=== PATIENT | female | born 1965 | race Caucasian/White ===

== ENCOUNTER → 2018-05-22 10:24 | Outpatient (CLI) | payer BC ==
[~2018-05-22 10:24] MED LIST: ADVAIR 500/501 DISK INH; CYCLOBENZAPRINE10 MG PO; DEMEROL50 MG PO; IBUPROFEN800 MG PO; PREDNISONE10 MG PO; PROAIR HFA8.5 GM INH; TENORMIN50 MG PO
== END | disposition home or self-care (01) ==
LOC: D.HCCARDIO 10:24
DX: I20.9 Angina pectoris, unspecified (principal)

== ENCOUNTER 2018-05-30 08:10 | Outpatient (CLI) | payer BC ==
[~2018-05-30] VITALS: Ht 165.1 cm; Wt 72.7 kg
--- NOTE | ~2018-05-30 | HP ---
PATIENT: ANDREW FONSECA MEDICAL RECORD: [id number] ACCOUNT: [id number] LOCATION:[place] : 61 ADMISSION DATE: 05/30/18 PCP: HARI BROOKE DO HISTORY AND PHYSICAL EXAMINATION DIAGNOSES: 1. Angina. 2. Hypertension. 3. Chronic obstructive pulmonary disease. 4. Smoking. HISTORY OF PRESENT ILLNESS: Ms. Fonseca presents with increasing episodes of chest pain compatible with angina. She does not have a history of coronary artery disease. She has not undergone cardiac catheterization in the past. She does have hypertension, smoking history, family history of coronary artery disease. PHYSICAL EXAMINATION: GENERAL APPEARANCE: Well-nourished, well-developed, appears stated age. Level of distress, comfortable. PSYCHIATRIC: Mental status, alert, normal affect. Orientation, oriented to time, place and person. EYES: Lids and conjunctiva, noninjected. No discharge, no pallor. ENT: Lips, teeth, gums, normal dentition. Oropharynx, no cyanosis, no pallor. NECK: Carotid arteries, bilateral normal upstroke, no bruits, no thrills. JUGULAR VEINS: No jugular venous pressure or distention. CERVICAL LYMPH NODES: Nontender, nonenlarged. THYROID: Not enlarged. Nontender. No nodules. LUNGS: Respiratory effort, unlabored. CHEST: Normal curvature. No thoracic deformity. No chest wall tenderness. Percussion, resonant. Auscultation, clear. No wheezes, no rales, no rhonchi. CARDIOVASCULAR: Precordial exam, nondisplaced. No heaves or pericardial thrills. Rate and rhythm, regular. Heart sounds, normal S1, normal S2. No S3, no gallop, no rub. Systolic murmur, not heard. Diastolic murmur, not heard. EXTREMITIES: No cyanosis, no edema. Peripheral pulses, full and equal in all extremities, except as noted. No bruits appreciated. ABDOMEN: Soft, nondistended. Normal aorta. No bruit. Nontender. No masses. Liver, nontender, no hepatomegaly. Spleen, nontender, no splenomegaly. MUSCULOSKELETAL: No joint tenderness. No joint swelling. No erythema. NEUROLOGICAL: Normal gait, normal strength, normal tone. SKIN: Warm and dry. OVERALL IMPRESSION: Anginal symptomatology in an escalating fashion. We will proceed with coronary angiography. Further care depends upon the findings of the angiography. TRANSINT:[id number] Voice Confirmation ID: [id number] DOCUMENT ID: [id number] HISTORY AND PHYSICAL [id number] ANDREW FONSECA JEFFREY MD at 1228 CC: [id number] DICTATION DATE: 05/30/18 0938 EXPERIMENTAL ELECTRONICS DEVELOPER: 05/30/18 1056 DEP CLI 05/30/18 [place] [address] [place] [address]
--- NOTE | ~2018-05-30 | OP ---
PATIENT NAME: ANDREW FONSECA MEDICAL RECORD: [id number] :61 LOCATION:D.CAT ADMISSION DATE: SURGEON: THOM BARRON MD DATE OF OPERATION: 05/30/2018 PROCEDURES: 1. PTCA stent LAD. 2. Left heart catheterization. 3. Selective coronary angiography. 4. Left ventriculogram. INDICATION: Angina and coronary artery disease. PROCEDURE IN DETAIL: After informed consent was obtained and after a detailed description of the risks, benefits as well as alternative therapies, the patient elected to proceed with angiogram and angioplasty. The right radial area was prepped and draped in normal sterile fashion. Right radial artery was cannulated via modified Seldinger technique with placement of 6-Luxembourgish sheath. All catheters exchanged through this sheath. FINDINGS: The left ventriculogram was performed in standard 30-degree JOSE view, reveals good cardiac wall motion throughout all segments. Overall ejection fraction estimated 60%. SELECTIVE CORONARY ANGIOGRAPHY: 1. Left main is with no significant angiographic disease. 2. Left anterior descending has 80+ percent stenosis in the mid vessel. 3. Left circumflex has moderate irregularities, but no flow-limiting stenosis. 4. Right coronary artery has moderate irregularities, but no flow-limiting stenosis. PTCA STENT OF THE LAD: The stent used was a 2.0 x 18 mm Javy. Result was 0% residual stenosis. OVERALL IMPRESSION: Successful percutaneous transluminal angioplasty stent of the left anterior descending going from greater than 80% initial stenosis to 0% residual. TRANSINT:[id number] Voice Confirmation ID: [id number] DOCUMENT ID: [id number] THOM BARRON MD at 1228 CC: [id number] DICTATION DATE: 05/30/18 1111 CAMPAIGN DEVELOPER: 05/30/18 1125 DEP CLI 05/30/18 [place] [id number]
--- NOTE | ~2018-05-30 | HEMODYNAMI ---
PATIENT:ANDREW FONSECA MEDICAL RECORD: [id number] : 61 LOCATION:[facility] ADMISSION DATE: 05/30/18 Generatedon:05/30/201811:14 Patient name: ANDREW FONSECA Patient #: [id number] SSN: [id number] : 1965 Date of study: 05/30/2018 Page: Of Hemodynamic Procedure Report Patient Data Patient Demographics Procedure consent was obtained First Name: ANDREW Gender: Female Last Name: : 1965 Middle Initial: LENI Age: 52 year(s) Patient #: [id number] Race: SSN: [id number] Additional ID: [id number] Contact details [address]: [address] [place] [address] rd State: [place] City: [place] Zip code: [address] Past Medical History Allergies Allergen Reaction Date Comments Reported Other allergy 04/22/2016 Codiene, [place], Tamadol, ASA, Avelox, Sulfa Other allergy 05/30/2018 [facility] Ad[facility] Admission Data Admission Date: 05/30/2018 Admission Time: 8:10 Height (in.): 65 BSA: 1.8 (m2) Height (cm.): 165.1 BMI: 26.67 (kg/m2) Weight (lbs.): 160.28 Weight (kg.): 72.7 Lab Results Lab Result Date: 05/30/2018 Lab Result Time: 0:00 Biochemistry Name Units Result Min Max BUN mg/dl 17 --(---*)-- 7 18 Creatinine mg/dl 5 --(----)-* 0.6 1.3 CBC Name Units Result Min Max Hemoglobin g/dl 14.8 --(-*--)-- 13.5 17.5 Procedure Procedure Types Cath Procedure Diagnostic Procedure [facility] w/Coronaries PCI Procedure Coronary Stent Coronary Stent Initial Procedure Description Procedure Date Procedure Date: 05/30/2018 Procedure Start Time: 10:57 Procedure End Time: 11:10 Procedure Staff Name Function Sawyer Barrow MD Performing Physician Emmy Bah RT Monitor Abbi Mahoney RT Scrub Domingo Crandall RN Nurse Procedure Data Cath Procedure Fluoroscopy Diagnostic fluoroscopy Total fluoroscopy Time: 2.8 time: 2.8 min min Diagnostic fluoroscopy Total fluoroscopy dose: 198 dose: 198 mGy mGy Contrast Material Contrast Material Type Amount (ml) Isovue 300 74 Entry Location Entry Primary Successful Side Size Upsize Upsize Entry Closure Koroma ccessful Closure Location (Fr) 1 (Fr) 2 (Fr) Remarks Device Remarks Radial Right 6 Fr Mechanical artery Short Compression Estimated blood loss: 10 ml Procedure Complications No complications Procedure Medications Medication Administration Route Dosage Oxygen etCO2 Nasal cannula 2 l/min Heparin Flush Bag added to field 2 bags (1000units/500ml NS) 0.9% NaCl I.V. 100 ml/hr Radial Cocktail added to field 1 syringe (Verapomil 2mg/Nitro 400mcg/Heparin 1500units) Fentanyl I.V. 50 mcg Versed I.V. 1 mg Radial Cocktail I.A. 1 syringe (Verapomil 2mg/Nitro 400mcg/Heparin 1500units) Fentanyl I.V. 50 mcg Versed I.V. 1 mg Heparin Bolus I.V. 4000 units Integrilin (Bolus I.V. 6.8 ml 2mg/ml) Integrilin (Bolus wasted 3.2 ml 2mg/ml) Fentanyl I.V. 50 mcg Fentanyl I.V. 50 mcg Plavix P.O. 600 mg Hemodynamics Rest BSA: 1.8 (m2) HGB: 14.8 (g/dl) O2 Consumption: Estimated: 177.17 (ml/min) O2 Con sumption indexed: Estimated:98.43 (ml/min/m) Heart Rate: 75 (bpm) Snapshots Pre Cath Intra NCS Post Cath Vital Signs Time Heart Resp SPO2 etCO2 NIBP (mmHg) Rhythm Pain Sedation Rate (ipm) (%) (mmHg) Status Level (bpm) 10:44:47 70 17 96 0 131/85(111) NSR 0 (11) 10(A) , No pain 10:49:03 69 16 96 0 136/69(108) NSR 0 (11) 10(A) , No pain 10:53:11 77 16 90 22.7 118/83(104) NSR 0 (11) 10(A) , No pain 10:57:19 79 17 95 29.5 115/75(89) NSR 0 (11) 10(A) , No pain 11:01:23 93 16 96 0 95/72(83) NSR 0 (11) 9(A) , No pain 11:05:24 91 16 93 0 113/70(95) NSR 0 (11) 9(A) , No pain 11:09:32 89 17 96 0 114/72(97) NSR 0 (11) 10(A) , No pain Medications Time Medication Route Dose Verified Delivered Reason Not es Effectiveness by by 10:45:45 Oxygen etCO2 2 l/min [address] Per physician Nasal Danial Crandall RN cannula 10:45:56 Heparin Flush added [address] used for Bag to Danial Crandall RN procedure (1000units/500ml field NS) 10:47:27 0.9% NaCl I.V. [address] Per physician ml/hr Danial Crandall RN 10:59:33 Radial Cocktail added [address] used for (Verapomil to syringe Danial Crandall RN procedure 2mg/Nitro field 400mcg/Heparin 1500units) 10:59:41 Fentanyl I.V. [address] for sedation Danial Crandall RN 10:59:48 Versed I.V. [address] for sedation Danial Crandall RN 11:01:01 Radial Cocktail I.A. [address] for (Verapomil syringe Danial Barrow MD vasodilation 2mg/Nitro 400mcg/Heparin 1500units) 11:03:17 Fentanyl I.V. [address] for sedation Danial Crandall RN 11:03:25 Versed I.V. [address] for sedation Danial Crandall RN 11:03:36 Heparin Bolus I.V. [address] for units Danial Crandall RN anticoagulation 11:05:23 Integrilin I.V. 6.[address] for (Bolus 2mg/ml) Danial Crandall RN antiplatelet therapy 11:05:31 Integrilin wasted 3.[address] for (Bolus 2mg/ml) Danial Crandall RN antiplatelet therapy 11:06:01 Fentanyl I.V. [address] for sedation Danial Crandall RN 11:08:32 Fentanyl I.V. [address] for sedation Danial Crandall RN 11:14:01 Plavix P.O. 600 mg Sawyer Crandall RN antiplatelet therapy Procedure Log Time Note 10:22:24 Domingo Crandall RN sent for patient. Start room use. 10:32:25 Time tracking: Regular hours (M-F 7:00 - 5:00) 10:32:28 Plan of Care:Hemodynamics will remain stable., Cardiac rhythm will remain stable., Comfort level will be maintained., Respiratory function will remain adequate., Patient/ family verbilizes understanding of procedure., Procedure tolerated without complication., Recovers from procedure without complications.. 10:32:30 Diagnostic Cath status Elective 10:32:31 Signed procedure consent form obtained from patient. 10:33:27 Patient Weight : 160.28 lbs 10:34:29 Patient Height : 65 inches 10:34:57 Lab Result : BUN 17 mg/dl 10:34:57 Lab Result : Hemoglobin 14.8 g/dl 10:34:57 Lab Result : Creatinine 5 mg/dl 10:38:57 Patient received from Pre/Post Procedure Room to CCL 3 Alert and oriented. Tansferred to table in Supine position. 10:38:57 Warm blankets applied, and truman hugger turned on for patient comfort. 10:38:58 Correct patient and procedure confirmed by team. 10:38:59 ECG and BP/O2 sat monitors applied to patient. 10:43:43 Vital chart was started 10:45:45 Oxygen 2 l/min etCO2 Nasal cannula was administered by Domingo Crandall RN; Per physician; 10:45:56 Heparin Flush Bag (1000units/500ml NS) 2 bags added to field was administered by Domingo Crandall RN; used for procedure; 10:47:27 0.9% NaCl 100 ml/hr I.V. was administered by Domingo Crandall RN; Per physician; 10:50:32 Baseline sample Acquired. 10:50:39 Rhythm: sinus rhythm 10:50:41 Full Disclosure recording started 10:53:22 H&P Date Dictated: 05/30/2018 Within 30 days and on chart., H&P Addendum completed by physician on day of procedure. (MUST COMPLETE FOR ALL OUTPATIENTS). 10:53:24 Pre-procedure instructions explained to patient. 10:53:26 Family in waiting room. 10:53:30 Patient NPO since Midnight. 10:53:56 Patient allergic to Other allergysee chrt 10:53:59 Is the patient allergic to Iodine/contrast media? No. 10:54:06 Was the patient premedicated? Yes 10:54:08 Is patient on blood thinner?No 10:54:10 Patient diabetic? No. 10:56:25 Snore? Yes 10:56:27 Sleep apnea? Yes 10:56:32 Dentures? No ? 10:56:37 Physician arrived 10:56:37 --------ALL STOP TIME OUT------ 10:56:38 Final Timeout: patient, procedure, and site verified with staff and physician. All members of the team are in agreement. 10:56:41 Right Radial & Right Groin site verified by team. 10:56:44 Physical assessment completed. ASA score P 2 - A patient with mild systemic disease as per Sawyer Barrow MD. 10:56:48 Sedation plan: IV Moderate Sedation Medication:Versed, Fentanyl 10:57:02 Patient pain scale 0/10 ?. 10:57:10 IV patent on arrival in left forearm with 0.9% NaCl at KVO. 10:57:14 Right Radial & Right Groin area was prepped with chlora-prep and draped in sterile fashion 10:57:15 Alarms reviewed by R. N. 10:57:16 Sharps counted by scrub and verified by R.N. 10:57:20 Procedure started. 10:57:30 Local anesthetic to right radial artery with Lidocaine 2% by Sawyer Barrow MD.INITIAL ACCESS ONLY 10:57:40 A 6 Fr Short sheath was inserted into the Right Radial artery 10:58:08 ? wire advanced. 10:59:25 Use device set Femoral Dx 10:59:27 ACIST Syringe (95833) opened to sterile field. 10:59:27 Bag Decanter (2002S) opened to sterile field. 10:59:28 Medline Cath Pack ([id number]) opened to sterile field. 10:59:29 DIAGNOSTIC WIRE .035 260cm J wire (555214) opened to sterile field. 10:59:33 Radial Cocktail (Verapomil 2mg/Nitro 400mcg/Heparin 1500units) 1 syringe added to field was administered by Domingo Crandall RN; used for procedure; 10:59:34 ACIST Hand Control (21885) opened to sterile field. 10:59:35 ACIST Manifold (95157) opened to sterile field. 10:59:38 Tegaderm 4 x 4 (1626W) opened to sterile field. 10:59:41 Fentanyl 50 mcg I.V. was administered by Domingo Crandall RN; for sedation; 10:59:48 Versed 1 mg I.V. was administered by Domingo Crandall RN; for sedation; 11:00:20 SHEATH 6FR Slender (80-8640) opened to sterile field. 11:00:34 GUIDE 6Fr Trevor 4.0 catheter (453834) opened to sterile field. 11:00:42 LCA angiography performed. 11:00:54 LV gram done using JOSE 11:01:01 Radial Cocktail (Verapomil 2mg/Nitro 400mcg/Heparin 1500units) 1 syringe I.A. was administered by Sawyer Barrow MD; for vasodilation; 11:01:10 EF : 60 % 11:01:12 LV hemodynamics recorded. 11:01:14 LCA angiography performed. 11:03:06 CHOICE PT Extra Support 182cm wire ([id number]) opened to sterile field. 11:03:07 INFLATOR Merit BasixCompak (XJ0561) opened to sterile field. 11:03:17 Fentanyl 50 mcg I.V. was administered by Domingo Crandall RN; for sedation; 11:03:20 GUIDE 6FR XBLAD 3.5 catheter ([id number]) opened to sterile field. 11:03:25 Versed 1 mg I.V. was administered by Domingo Crandall RN; for sedation; 11:03:31 Proceeding to intervention. 11:03:36 Heparin Bolus 4000 units I.V. was administered by Domingo Crandall RN; for anticoagulation; 11:03:39 6 Fr XBLAD3.5 guide catheter was inserted over the wire 11:03:47 choice pt ex wire advanced. 11:03:50 Wire advanced across lesion. 11:05:23 Integrilin (Bolus 2mg/ml) 6.8 ml I.V. was administered by Domingo Crandall RN; for antiplatelet therapy; 11:05:31 Integrilin (Bolus 2mg/ml) 3.2 ml wasted was administered by Domingo Crandall RN; for antiplatelet therapy; 11:06:01 Fentanyl 50 mcg I.V. was administered by Domingo Crandall RN; for sedation; 11:06:04 Place stent Inflation Number: 1 A KINZA RX 2.0 x 18 stent ([id number]) was prepped and advanced across the Dist LAD. The stent was deployed at 13 PERI for 0:07 (min:sec). 11:07:21 Wire removed. 11:07:22 Guide catheter removed. 11:07:34 TR BAND Standard ([id number]) opened to sterile field. 11:07:52 Sheath removed intact; hemostasis achieved with Mechanical Compression to the Right Radial artery. 11:07:55 Procedure ended.(Physican Out) 11:08:08 Fluoroscopy time 02.80 minutes. 11:08:15 Fluoroscopy dose: 198 mGy 11:08:15 Flurop Dose total: 198 11:08:20 Contrast amount:Isovue 300 74ml. 11:08:23 Sharps counted by scrub and verified by R.N. 11:08:32 Fentanyl 50 mcg I.V. was administered by Domingo Crandall RN; for sedation; 11:08:48 TR band inflated with 10cc of air. 11:08:51 Insertion/operative site no bleeding no hematoma. 11:09:01 Post right radial artery:stable 11:09:08 Post Procedure Pulses reassessed and unchanged 11:09:16 Post-procedure physical assessment completed. ASA score P 2 - A patient with mild systemic disease as per Sawyer Barrow MD. 11:09:19 Post procedure rhythm: unchanged. 11:09:22 Estimated blood loss: 10 ml 11:09:26 Post procedure instruction explained to patient.Patient verbalizes understanding. 11:09:38 Procedure type changed to Cath procedure, Diagnostic procedure, LHC, LHC w/Coronaries, PCI procedure, Coronary Stent, Coronary Stent Initial 11:09:40 Procedure and supply charges have been captured, reviewed, submitted and are correct. 11:10:12 Procedure Complication : No complications 11:10:15 Vital chart was stopped 11:10:15 See physician's report for complete and final results. 11:10:17 Report given to Pre/Post Procedure Room. 11:10:22 Patient transfered to Pre/Post Procedure Room with Stretcher. 11:10:24 Procedure ended. 11:10:24 Full Disclosure recording stopped 11:10:27 End room use (Document Last) 11:10:34 ACC-PCI Only Patient was given prescriptions, or instructed by Sawyer Barrow MD to start/continue the following medications upon discharge: Plavix 11:14:01 Plavix 600 mg P.O. was administered by Domingo Crandall RN; for antiplatelet therapy; Intervention Summary Intervention Notes Time ActionType Lesion and Equipment Used Action# Pressure Duration Attributes 11:06:04 Place stent Dist LAD KINZA RX 2.0 x 1 13 00:07 18 stent ([id number]) Device Usage Item Name Manufacture Quantity Catalog Number Hospital Part Current M inimal Lot# / Charge Number Stock Stock Serial# Code ACIST Syringe Acist 1 27500 126551 327144 792648 2 0 (13199) Medical Systems Inc Bag Decanter Microtek 1 2001S 861829 46978 676787 5 (2001S) Medical Inc. Medline Cath Medline 1 [id number] 428704 09423 427858 5 Pack ([id number]) DIAGNOSTIC St Radu 1 843785 990653 181010 232563 3 0 WIRE .035 260cm J wire (051865) ACIST Hand Acist 1 65337 486317 468731 398764 5 Control Medical (48546) Systems Inc ACIST Manifold Acist 1 90244 199612 752790 862871 5 (63073) Medical Systems Inc Tegaderm 4 x 4 3M 1 1626W 697732 553758 051342 5 (1626W) SHEATH 6FR Terumo 1 [id number] 603369 969578 396222 5 Slender (80-1060) GUIDE 6Fr Terumo 1 40-4811 579414 503601 726407 1 Trevor 4.0 catheter (283875) CHOICE PT [place] 1 [id number] 324864 608070 167608 5 Extra Support Scientific 182cm wire (5916832N4) INFLATOR Merit Merit 1 KJ4298 982111 908913 877113 1 5 [facility] (TK5501) GUIDE 6FR Cardinal 1 [id number] 300085 365778 650391 1 0 XBLAD 3.5 Health catheter (18983790) KINZA RX 2.0 x Medtronic 1 [id number] 729027 3421439 618902 5 [id number] 18 stent ([id number]) TR BAND Terumo 1 [id number] 205051 326021 517676 4 0 Standard ([id number]) Signature Audit [place] Stage Time Signature Unsigned Intra-Procedure 05/30/2018 Emmy Bah 11:14:45 AM RT(R) Signatures Monitor : Emmy Bah Signature : RT Date : Time : [place] [address] [place] [address]
[2018-05-30] MEDS ORDERED: CYMBALTA30 MG PO (08:53)
[2018-05-30] MEDS ORDERED: SINGULAIR10 MG PO (08:53)
[2018-05-30] MEDS ORDERED: TENORMIN50 MG PO (08:54)
[2018-05-30 09:07] VITALS: BP 137/84; Ht 165.1 cm; Wt 72.7 kg
[2018-05-30 09:14] LABS: BASOPHILS 0.3 % (0-2); EOSINOPHILS 1.7 % (0-7); HEMATOCRIT 42.2 % (36.0-48.0); HEMOGLOBIN 14.8 g/dL (12-16); IMMATURE GRANULOCYTES 0.3 % (0-5); LYMPHOCYTES 27.9 % (15-50); MCH 33.3 pg (26.0-34.0); MCHC 35.1 g/dL (31.0-37.0); MCV 94.8 fL (80.0-100.0); MEAN PLATELET VOLUME 10.5 fL (7.4-10.4); MONOCYTES 8.1 % (2-11); NEUTROPHILS 61.7 % (40-80); PLATELET COUNT 237 10x3/uL (130-400); RBC 4.45 10x6/uL (4.00-5.40); RDW 13.3 % (11.5-14.5); WBC 7.8 10x3/uL (4.8-10.8)
[2018-05-30 09:22] LABS: CALC OSMOLALITY 282 mosm/kg (275-300); CALCIUM 9.5 mg/dL (8.5-10.1); CARBON DIOXIDE 30.1 mmol/L (21.0-32.0); CHLORIDE - SERUM 101 mmol/L (98-107); CREATININE - SERUM 0.5 mg/dL (0.6-1.3); GLUCOSE 102 mg/dL (74-106); POTASSIUM - SERUM 3.8 mmol/L (3.5-5.1); SODIUM 141 mmol/L (136-145); UREA NITROGEN 17 mg/dL (7-18); eGFR NON AFRICAN AMERICAN > 90 mL/min (90-120)
[2018-05-30] MEDS ORDERED: PLAVIX75 MG PO (11:35)
== END 2018-05-30 14:55 | disposition home or self-care (01) ==
LOC: D.CATH 08:10
PROVIDERS: Internal Medicine Interventional Cardiology
DX: I25.119 Atherosclerotic heart disease of native coronary artery with unspecified angina pectoris (principal); I10 Essential (primary) hypertension; F17.200 Nicotine dependence, unspecified, uncomplicated; Z82.49 Family history of ischemic heart disease and other diseases of the circulatory system; Z01.812 Encounter for preprocedural laboratory examination

== ENCOUNTER 2018-07-06 12:55 | Inpatient (IN) | payer MEDICAID ==
[~2018-07-06] VITALS: Ht 165.1 cm; Wt 74.5 kg
[~2018-07-06 12:55] MED LIST changes: +CYMBALTA30 MG PO; +PLAVIX75 MG PO; +SINGULAIR10 MG PO
[2018-07-06 13:30] VITALS: BP 117/75
[2018-07-06 15:49] LABS: BASOPHILS 0.4 % (0-2); EOSINOPHILS 1.1 % (0-7); HEMATOCRIT 37.7 % (36.0-48.0); HEMOGLOBIN 12.9 g/dL (12-16); IMMATURE GRANULOCYTES 0.2 % (0-5); MCH 32.3 pg (26.0-34.0); MCHC 34.2 g/dL (31.0-37.0); MCV 94.3 fL (80.0-100.0); MEAN PLATELET VOLUME 10.2 fL (7.4-10.4); MONOCYTES 9.9 % (2-11); NEUTROPHILS 61.4 % (40-80); PLATELET COUNT 227 10x3/uL (130-400); RDW 13.4 % (11.5-14.5); WBC 5.3 10x3/uL (4.8-10.8)
[2018-07-06 16:06] LABS: ALBUMIN 3.3 g/dL (3.4-5.0); ALKALINE PHOSPHATASE 42 U/L (46-116); ALT (SGPT) 22 U/L (10-68); BILIRUBIN - TOTAL 0.17 mg/dL (0.2-1.3); CALC OSMOLALITY 277 mosm/kg (275-300); CALCIUM 9.2 mg/dL (8.5-10.1); CARBON DIOXIDE 26.3 mmol/L (21.0-32.0); CHLORIDE - SERUM 100 mmol/L (98-107); CREATININE - SERUM 0.7 mg/dL (0.6-1.3); GLUCOSE 116 mg/dL (74-106); POTASSIUM - SERUM 3.6 mmol/L (3.5-5.1); PROTEIN - SERUM 7.6 g/dL (6.4-8.2); SODIUM 138 mmol/L (136-145); UREA NITROGEN 15 mg/dL (7-18); eGFR NON AFRICAN AMERICAN > 90 mL/min (90-120)
[2018-07-06 18:17] VITALS: BMI 27.5
[2018-07-07] VITALS: BP 112/49
[2018-07-07 04:00] VITALS: BP 115/63
[2018-07-07 06:10] LABS: BASOPHILS 0.2 % (0-2); EOSINOPHILS 0 % (0-7); HEMATOCRIT 37.9 % (36.0-48.0); HEMOGLOBIN 12.7 g/dL (12-16); IMMATURE GRANULOCYTES 0.2 % (0-5); MCH 31.9 pg (26.0-34.0); MCHC 33.5 g/dL (31.0-37.0); MCV 95.2 fL (80.0-100.0); MEAN PLATELET VOLUME 10.5 fL (7.4-10.4); MONOCYTES 2.2 % (2-11); NEUTROPHILS 90.4 % (40-80); PLATELET COUNT 236 10x3/uL (130-400); RBC 3.98 10x6/uL (4.00-5.40); RDW 13.6 % (11.5-14.5)
[2018-07-07 06:34] LABS: CALC OSMOLALITY 286 mosm/kg (275-300); CALCIUM 8.8 mg/dL (8.5-10.1); CARBON DIOXIDE 22.5 mmol/L (21.0-32.0); CHLORIDE - SERUM 103 mmol/L (98-107); CREATININE - SERUM 0.8 mg/dL (0.6-1.3); GLUCOSE 238 mg/dL (74-106); POTASSIUM - SERUM 3.5 mmol/L (3.5-5.1); SODIUM 140 mmol/L (136-145); UREA NITROGEN 13 mg/dL (7-18); eGFR NON AFRICAN AMERICAN 79 mL/min (90-120)
[2018-07-07 08:55] VITALS: BP 128/72
[2018-07-07 12:42] VITALS: BP 149/77
[2018-07-07 13:44] VITALS: Ht 165.1 cm; Wt 74.5 kg
[2018-07-07 21:51] VITALS: BP 116/64
[2018-07-07 23:53] VITALS: BP 143/75
[2018-07-08 03:55] VITALS: BP 152/72
[2018-07-08 05:23] LABS: BASOPHILS 0.2 % (0-2); EOSINOPHILS 0 % (0-7); HEMATOCRIT 34.5 % (36.0-48.0); HEMOGLOBIN 11.6 g/dL (12-16); IMMATURE GRANULOCYTES 0.4 % (0-5); MCH 31.6 pg (26.0-34.0); MCHC 33.6 g/dL (31.0-37.0); MEAN PLATELET VOLUME 10.4 fL (7.4-10.4); MONOCYTES 6.8 % (2-11); NEUTROPHILS 71.6 % (40-80); PLATELET COUNT 222 10x3/uL (130-400); RBC 3.67 10x6/uL (4.00-5.40); RDW 13.4 % (11.5-14.5)
[2018-07-08 05:27] LABS: WBC 10.9 10x3/uL (4.8-10.8)
[2018-07-08 05:44] LABS: CALCIUM 8.6 mg/dL (8.5-10.1); CHLORIDE - SERUM 108 mmol/L (98-107); CREATININE - SERUM 0.7 mg/dL (0.6-1.3); SODIUM 144 mmol/L (136-145); UREA NITROGEN 13 mg/dL (7-18); eGFR NON AFRICAN AMERICAN > 90 mL/min (90-120)
[2018-07-08 05:47] LABS: CALC OSMOLALITY 286 mosm/kg (275-300); GLUCOSE 105 mg/dL (74-106)
[2018-07-08 05:48] LABS: POTASSIUM - SERUM 2.8 mmol/L (3.5-5.1)
[2018-07-08 10:41] VITALS: BP 117/76
[2018-07-08 14:29] VITALS: BP 124/86
[2018-07-08 20:30] VITALS: BP 123/65
[2018-07-09 04:30] VITALS: BP 145/76
[2018-07-09 05:27] LABS: BASOPHILS 0.2 % (0-2); EOSINOPHILS 0.6 % (0-7); HEMATOCRIT 33.8 % (36.0-48.0); HEMOGLOBIN 11.2 g/dL (12-16); IMMATURE GRANULOCYTES 0.2 % (0-5); LYMPHOCYTES 37.1 % (15-50); MCH 31.8 pg (26.0-34.0); MCHC 33.1 g/dL (31.0-37.0); MONOCYTES 10.6 % (2-11); NEUTROPHILS 51.3 % (40-80); PLATELET COUNT 220 10x3/uL (130-400); RBC 3.52 10x6/uL (4.00-5.40); WBC 8.2 10x3/uL (4.8-10.8)
[2018-07-09 05:39] LABS: CALC OSMOLALITY 284 mosm/kg (275-300); CALCIUM 8.5 mg/dL (8.5-10.1); CHLORIDE - SERUM 106 mmol/L (98-107); CREATININE - SERUM 0.6 mg/dL (0.6-1.3); GLUCOSE 90 mg/dL (74-106); POTASSIUM - SERUM 3.7 mmol/L (3.5-5.1); SODIUM 143 mmol/L (136-145); UREA NITROGEN 13 mg/dL (7-18); eGFR NON AFRICAN AMERICAN > 90 mL/min (90-120)
[2018-07-09 09:18] VITALS: BP 145/78
[2018-07-09 14:23] VITALS: BP 140/74
[2018-07-09 20:30] VITALS: BP 139/86
[2018-07-10 04:30] VITALS: BP 170/93
[2018-07-10 05:35] LABS: BASOPHILS 0.4 % (0-2); EOSINOPHILS 1.1 % (0-7); HEMOGLOBIN 11.9 g/dL (12-16); IMMATURE GRANULOCYTES 0.4 % (0-5); LYMPHOCYTES 29.3 % (15-50); MCH 31.9 pg (26.0-34.0); MEAN PLATELET VOLUME 10.1 fL (7.4-10.4); MONOCYTES 11.6 % (2-11); NEUTROPHILS 57.2 % (40-80); PLATELET COUNT 248 10x3/uL (130-400); RBC 3.73 10x6/uL (4.00-5.40); RDW 13.3 % (11.5-14.5); WBC 8.5 10x3/uL (4.8-10.8)
[2018-07-10 05:39] LABS: MCV 93.8 fL (80.0-100.0)
[2018-07-10 06:09] LABS: CALC OSMOLALITY 275 mosm/kg (275-300); CALCIUM 8.8 mg/dL (8.5-10.1); CARBON DIOXIDE 30.2 mmol/L (21.0-32.0); CHLORIDE - SERUM 99 mmol/L (98-107); CREATININE - SERUM 0.6 mg/dL (0.6-1.3); GLUCOSE 113 mg/dL (74-106); POTASSIUM - SERUM 3.3 mmol/L (3.5-5.1); SODIUM 138 mmol/L (136-145); UREA NITROGEN 11 mg/dL (7-18); eGFR NON AFRICAN AMERICAN > 90 mL/min (90-120)
[2018-07-10 19:55] VITALS: BP 139/84
[2018-07-11 00:11] VITALS: BP 117/83
[2018-07-11 03:50] VITALS: BP 138/68
[2018-07-11 06:28] LABS: BASOPHILS 0.3 % (0-2); HEMATOCRIT 34.4 % (36.0-48.0); HEMOGLOBIN 11.7 g/dL (12-16); IMMATURE GRANULOCYTES 0.5 % (0-5); LYMPHOCYTES 28.8 % (15-50); MCH 31.9 pg (26.0-34.0); MCV 93.7 fL (80.0-100.0); MEAN PLATELET VOLUME 10.1 fL (7.4-10.4); MONOCYTES 11.5 % (2-11); NEUTROPHILS 57.9 % (40-80); PLATELET COUNT 247 10x3/uL (130-400); RBC 3.67 10x6/uL (4.00-5.40); RDW 13.1 % (11.5-14.5); WBC 9.8 10x3/uL (4.8-10.8)
[2018-07-11 06:49] LABS: ALBUMIN 3.1 g/dL (3.4-5.0); ALKALINE PHOSPHATASE 28 U/L (46-116); ALT (SGPT) 33 U/L (10-68); BILIRUBIN - TOTAL 0.34 mg/dL (0.2-1.3); CALC OSMOLALITY 277 mosm/kg (275-300); CALCIUM 8.6 mg/dL (8.5-10.1); CARBON DIOXIDE 29.2 mmol/L (21.0-32.0); CHLORIDE - SERUM 102 mmol/L (98-107); CREATININE - SERUM 0.6 mg/dL (0.6-1.3); GLUCOSE 108 mg/dL (74-106); POTASSIUM - SERUM 3.1 mmol/L (3.5-5.1); PROTEIN - SERUM 7.2 g/dL (6.4-8.2); SODIUM 140 mmol/L (136-145); eGFR NON AFRICAN AMERICAN > 90 mL/min (90-120)
[2018-07-11 06:52] LABS: UREA NITROGEN 8 mg/dL (7-18)
[2018-07-11 09:47] VITALS: BP 148/75
--- NOTE | 2018-07-11 17:02 | MORECARE ---
CASE MANAGEMENT DISCHARGE SUMMARY PATIENT: ANDREW FONSECA UNIT: [id number] ADM DATE: 07/06/18 AGE: 52 : 61 SEX: F ROOM/BED: D.2130 AUTHOR: MACHELLE NEWBERRY PHYSICIAN: REFERRING PHYSICIAN: HARI BROOKE DO DATE OF SERVICE: 07/11/18 Discharge Plan Patient Name: ANDREW FONSECA [facility] [facility] 1965 Planned Disposition: Home Anticipated Discharge Date: 07/14/18 Discharge Date: Expected LOS: 8 Initial Reviewer: [email or web address] Initial Review Date: 07/11/2018 Generated: 07/11/18 6:02 pm DCPIA - Discharge Planning Initial Assessment Updated by [email or web address]: Екатерина Bear on 07/11/18 5:00 pm * Is the patient Alert and Oriented? Yes * How many steps to enter\exit or inside your home? * PCP DR. BROOKE * Pharmacy [facility] * Preadmission Environment Home with Family * ADLs Independent * Equipment Bedside Commode Cane Shower Chair Walker * List name and contact numbers for known caregivers / representatives who currently or will assist patient after discharge: SIDNEY ([facility]) [phone] * Verbal permission to speak to the caregivers and representatives has been obtained from the patient. Yes * Community resources currently utilized None * Additional services required to return to the preadmission environment? Yes * Can the patient safely return to the preadmission environment? Yes * Has this patient been hospitalized within the prior 30 days at any hospital? No Patient Name: ANDREW FONSECA Page [id number] at 1702 All edits/amendments must be made on the electronic document DICTATION DATE: 07/11/181701 BILLING CONTROL CLERK: MARIO 07/11/181701 RPT#: [id number] DC DATE: STATUS: ADM IN [facility] [address] [place] [address] END OF REPORT
--- NOTE | 2018-07-11 17:11 | MORECARE ---
CASE MANAGEMENT DISCHARGE SUMMARY PATIENT: ANDREW FONSECA UNIT: [id number] ADM DATE: 07/06/18 AGE: 52 : 61 SEX: F ROOM/BED: D.2130 AUTHOR: MACHELLE NEWBERRY PHYSICIAN: REFERRING PHYSICIAN: HARI BROOKE DO DATE OF SERVICE: 07/11/18 Discharge Plan Patient Name: ANDREW FONSECA Facility: [facility]:[place] : 1965 Planned Disposition: Home Anticipated Discharge Date: 07/14/18 Discharge Date: Expected LOS: 8 Initial Reviewer: [email or web address] Initial Review Date: 07/11/2018 Generated: 07/11/18 6:11 pm Comments DCP- Discharge Planning Updated by [email or web address]: Екатерина Bear on 07/11/18 4:[address] Patient Name: ANDREW FONSECA Admission Status: Urgent Accout number: [id number] Admission Date: 07-06-2018 : 1965 Admission Diagnosis:SHORTNESS OF BREATH Attending: HARI BROOKE Current LOS: 5 Anticipated DC Date: 07-14-2018 Planned Disposition: Home Primary Insurance: [facility] PRIVATE OPTIONS [facility] Discharge Planning Comments: CM MET WITH PATIENT REGARDING D/C NEEDS AND PLANS. PATIENT STATED SHE LIVES WITH HER MOTHER (SIDNEY) AND SHE WILL DRIVE HER HOME AT DISCHARGE. PATIENT STATED THERE IS ONE STEP TO ENTER HOME AND NO STAIRS ONCE INSIDE. PATIENT STATED SHE IS INDEPENDENT WITH HER CARE AND HAS A WALKER, SHOWER CHAIR, BS COMMODE, AND CANE AT HOME IF NEEDED. PATIENTS PCP IS DR. BROOKE AND USES [facility]. PATIENT REFUSED HOME HEALTH. CM WILL CONTINUE TO FOLLOW PATIENT WITH D/C NEEDS AND PLANS. PCP DR. EDWARDO CORTEZ [facility] [place] ([facility]) [phone] Ticketing Clerk: Екатерина Bear DCPIA - Discharge Planning Initial Assessment Updated by [email or web address]: Екатерина Bear on 07/11/18 5:00 pm * Is the patient Alert and Oriented? Yes * How many steps to enter\exit or inside your home? * PCP DR. BROOKE * Pharmacy [facility] * Preadmission Environment Home with Family * ADLs Independent * Equipment Bedside Commode Cane Shower Chair Walker * List name and contact numbers for known caregivers / representatives who currently or will assist patient after discharge: SIDNEY (MOM) [phone] * Verbal permission to speak to the caregivers and representatives has been obtained from the patient. Yes * Community resources currently utilized None * Additional services required to return to the preadmission environment? Yes * Can the patient safely return to the preadmission environment? Yes * Has this patient been hospitalized within the prior 30 days at any hospital? No Last DP export: 07/11/18 4:02 p Patient Name: ANDREW FONSECA Page [phone] at 1711 All edits/amendments must be made on the electronic document DICTATION DATE: 07/11/181709 ASSISTANT QUALITY MANAGER: MARIO 07/11/181709 RPT#: [id number] DC DATE: STATUS: ADM IN [facility] [address] [place] [address] END OF REPORT
[2018-07-11 20:41] VITALS: BP 108/69
[2018-07-12 00:38] VITALS: BP 140/71
[2018-07-12 04:34] VITALS: BP 177/94
[2018-07-12 05:52] LABS: BASOPHILS 0.2 % (0-2); EOSINOPHILS 1.5 % (0-7); HEMOGLOBIN 13.2 g/dL (12-16); IMMATURE GRANULOCYTES 0.6 % (0-5); LYMPHOCYTES 22.6 % (15-50); MCH 32.6 pg (26.0-34.0); MCHC 34.7 g/dL (31.0-37.0); MCV 93.8 fL (80.0-100.0); MEAN PLATELET VOLUME 10.2 fL (7.4-10.4); MONOCYTES 12.8 % (2-11); NEUTROPHILS 62.3 % (40-80); PLATELET COUNT 303 10x3/uL (130-400); RBC 4.05 10x6/uL (4.00-5.40); RDW 13.2 % (11.5-14.5); WBC 9.6 10x3/uL (4.8-10.8)
[2018-07-12 06:23] LABS: ALBUMIN 3.4 g/dL (3.4-5.0); ALKALINE PHOSPHATASE 31 U/L (46-116); ALT (SGPT) 38 U/L (10-68); BILIRUBIN - TOTAL 0.45 mg/dL (0.2-1.3); CALC OSMOLALITY 276 mosm/kg (275-300); CALCIUM 9.3 mg/dL (8.5-10.1); CARBON DIOXIDE 28.6 mmol/L (21.0-32.0); CHLORIDE - SERUM 99 mmol/L (98-107); CREATININE - SERUM 0.6 mg/dL (0.6-1.3); GLUCOSE 103 mg/dL (74-106); POTASSIUM - SERUM 3.5 mmol/L (3.5-5.1); SODIUM 139 mmol/L (136-145); T4 THYROXIN - FREE 1.16 ng/dL (0.76-1.46); THYROID STIMULATING HORMONE 0.78 uIU/mL (0.36-3.74); UREA NITROGEN 10 mg/dL (7-18); eGFR NON AFRICAN AMERICAN > 90 mL/min (90-120)
[2018-07-12 08:19] VITALS: BP 123/64
[2018-07-12 12:04] VITALS: BP 118/67
[2018-07-12] MEDS ORDERED: VIBRAMYCIN 100100 MG PO (13:21)
--- NOTE | 2018-07-13 09:23 | MORECARE ---
CASE MANAGEMENT DISCHARGE SUMMARY PATIENT: ANDREW FONSECA UNIT: [id number] ADM DATE: 07/06/18 AGE: 52 : 61 SEX: F ROOM/BED: D.2130 AUTHOR: MACHELLE NEWBERRY PHYSICIAN: REFERRING PHYSICIAN: HARI BROOKE DO DATE OF SERVICE: 07/13/18 Discharge Plan Patient Name: ANDREW FONSECA Facility: [facility]:[place] : 1965 Planned Disposition: Home Anticipated Discharge Date: 07/14/18 Discharge Date: 07/12/2018 Expected LOS: 8 Initial Reviewer: [email or web address] Initial Review Date: 07/11/2018 Generated: 07/13/18 10:23 am Comments DCP- Discharge Planning Updated by [email or web address]: Екатерина Bear on 07/11/18 4:[address] Patient Name: ANDREW FONSECA Admission Status: Urgent Accout number: [id number] Admission Date: 07-06-2018 : 1965 Admission Diagnosis:SHORTNESS OF BREATH Attending: HARI BROOKE Current LOS: 5 Anticipated DC Date: 07-14-2018 Planned Disposition: Home Primary Insurance: [facility] PRIVATE OPTIONS [facility] Discharge Planning Comments: CM MET WITH PATIENT REGARDING D/C NEEDS AND PLANS. PATIENT STATED SHE LIVES WITH HER MOTHER (SIDNEY) AND SHE WILL DRIVE HER HOME AT DISCHARGE. PATIENT STATED THERE IS ONE STEP TO ENTER HOME AND NO STAIRS ONCE INSIDE. PATIENT STATED SHE IS INDEPENDENT WITH HER CARE AND HAS A WALKER, SHOWER CHAIR, BS COMMODE, AND CANE AT HOME IF NEEDED. PATIENTS PCP IS DR. BROOKE AND USES [facility]. PATIENT REFUSED HOME HEALTH. CM WILL CONTINUE TO FOLLOW PATIENT WITH D/C NEEDS AND PLANS. PCP DR[facility] EDWARDO [facility] [place] [place] [phone] [employer] Specialist: Екатерина Bear DCPIA - Discharge Planning Initial Assessment Updated by [email or web address]: Екатерина Bear on 07/11/18 5:00 pm * Is the patient Alert and Oriented? Yes * How many steps to enter\exit or inside your home? * PCP DR. BROOKE * Pharmacy [facility] [address] * Preadmission Environment Home with Family * ADLs Independent * Equipment Bedside Commode Cane Shower Chair Walker * List name and contact numbers for known caregivers / representatives who currently or will assist patient after discharge: SIDNEY (MOM) [phone] * Verbal permission to speak to the caregivers and representatives has been obtained from the patient. Yes * Community resources currently utilized None * Additional services required to return to the preadmission environment? Yes * Can the patient safely return to the preadmission environment? Yes * Has this patient been hospitalized within the prior 30 days at any hospital? No Last DP export: 07/11/18 4:11 p Patient Name: ANDREW FONSECA Page [id number] at 0923 All edits/amendments must be made on the electronic document DICTATION DATE: 07/13/18922 RECORDS MANAGEMENT MANAGER: MARIO 07/13/18922 RPT#: [id number] DC DATE:07/12/18 STATUS: DIS IN [facility] [address] [place] [address] END OF REPORT
[2018-07-13 20:08] LABS: IGG SUBCLASS 1 717 mg/dL (248-810); IGG SUBCLASS 2 163 mg/dL (130-555); IGG SUBCLASS 3 69 mg/dL (15-102); IMMUNOGLOBULIN G 966 mg/dL (700-1600)
[2018-07-14 08:20] LABS: IGG SUBCLASS 4 4 mg/dL (2-96); IMMUNOGLOBULIN A 278 mg/dL (87-352); IMMUNOGLOBULIN E 160 IU/mL (0-100)
== END 2018-07-12 15:19 | disposition home or self-care (01) | DRG 202 ==
LOC: D.WS 12:55 → D.M2 12:55 → D.WS 13:16 → D.M2 19:39
PROVIDERS: Family Medicine; Internal Medicine Gastroenterology; Internal Medicine Nephrology; Internal Medicine Pulmonary Disease; ADMIT Family Medicine
PROC: 0DJ08ZZ Inspection of Upper Intestinal Tract, Via Natural or Artificial Opening Endoscopic (ICD-10-PCS; principal; 2018-07-11 07:18)
DX: J45.901 Unspecified asthma with (acute) exacerbation (principal); J44.1 Chronic obstructive pulmonary disease with (acute) exacerbation; F17.213 Nicotine dependence, cigarettes, with withdrawal; J20.9 Acute bronchitis, unspecified; K31.84 Gastroparesis; J01.90 Acute sinusitis, unspecified; I25.10 Atherosclerotic heart disease of native coronary artery without angina pectoris; G47.00 Insomnia, unspecified; K21.9 Gastro-esophageal reflux disease without esophagitis; G47.30 Sleep apnea, unspecified

== ENCOUNTER 2018-12-01 09:46 | Emergency (ER) | payer MEDICAID ==
[~2018-12-01] VITALS: Ht 165.1 cm; Wt 75.0 kg
[~2018-12-01 09:46] MED LIST changes: +VIBRAMYCIN 100100 MG PO
[2018-12-01 09:50] VITALS: Ht 165.1 cm; Wt 75.0 kg
[2018-12-01] MEDS ORDERED: VOLTAREN75 MG PO (12:46)
[2018-12-01] MEDS ORDERED: BACLOFEN20 M1 PO (12:46)
[2018-12-01 14:48] VITALS: BP 123/77
== END 2018-12-01 14:49 | disposition home or self-care (01) ==
LOC: D.ER 09:46
DX: M79.661 Pain in right lower leg (principal); M54.31 Sciatica, right side

== ENCOUNTER → 2019-07-13 08:22 | Outpatient (CLI) | payer MEDICAID ==
[2018-12-01 09:50] VITALS: BMI 27.5
[~2019-07-13 08:22] MED LIST changes: +AMBIEN10 MG PO; +BACLOFEN20 M1 PO; +LIPITOR20 MG PO; +SKELAXIN800 MG PO; +VOLTAREN75 MG PO
== END | disposition home or self-care (01) ==
LOC: D.HCCARDIO 08:22
PROVIDERS: ATTEND Internal Medicine Cardiovascular Disease
DX: I25.10 Atherosclerotic heart disease of native coronary artery without angina pectoris (principal)

== ENCOUNTER → 2020-01-04 16:07 | Outpatient (CLI) | payer MEDICAID ==
[2019-07-20 10:11] VITALS: BMI 27.9
== END | disposition home or self-care (01) ==
LOC: D.MRI 16:07
PROVIDERS: ATTEND Orthopaedic Surgery
DX: M54.16 Radiculopathy, lumbar region (principal)